=== PATIENT | male | born 1950 | race Caucasian/White ===

== ENCOUNTER → 2016-10-03 | Day surgery (SDC) | payer MEDICARE ==
[~2016-10-03] MED LIST: BELLADONNA ALKALOIDS/OPIUM 60 MG SUPP RECTAL ONE; GENTAMICIN SULFATE 80 MG/2 ML VIAL ONE; LACTATED RINGER'S 1000 ML INJ 1,000 ML ONE; MEPERIDINE HCL 25 MG/ML VIAL ONE; MIDAZOLAM HCL 2 MG/2 ML VIAL ONE; ONDANSETRON HCL 4 MG/2 ML VIAL IV PUSH ONE; PROPOFOL 200 MG/20 ML AMP IV ONE; ceFAZolin INJ 1,000 MG VIAL ONE
--- NOTE | 2016-10-03 10:26 | TN ---
cc: MARTHA BURCH M.D. DATE OF SURGERY 10/03/2016 PREOPERATIVE DIAGNOSIS Benign prostatic hyperplasia with obstruction ICD-10 code N40.1) POSTOPERATIVE DIAGNOSIS Benign prostatic hyperplasia with obstruction ICD-10 code N40.1) PROCEDURE Transurethral resection of the prostate (TURP),(CPT code 70305). INDICATIONS Mr. Romo is a 66-year-old gentleman with lower urinary tract symptoms secondary to BPH and some elevated residual urines who has failed maximum pharmacologic intervention presents now for definitive treatment. FINDINGS Normal urethra. The prostatic urethra shows trilobar hyperplasia with a massive median lobe most of which is projecting intravesically. The bladder neck is markedly elevated and in fact, most of his obstruction is from the median lobe itself. The prostatic prostate is quite vascular as is the bladder itself. The bladder shows ureteral orifice normal size, shape and position effluxing clear urine. The orifices could not be identified until some of the bladder neck was resected. There are multiple diverticula of different sizes within the bladder most small to moderately sized. There is obviously heavy trabeculation of the bladder. No stones, two tumors, abnormal mucosa identified. PROCEDURE The procedure, as well as the risks and benefits were explained to the patient. Informed consent was obtained. The patient was taken to the major operative theater where he was placed in a supine position. The patient was identified, as well as the operative site. A universal time-out was performed in standard fashion. At this time, general anesthetic and prophylactic intravenous antibiotics consisting of gentamicin 80 mg and Ancef 1 gram were administered. After adequate anesthetic, he was placed in a low dorsal lithotomy position with slight Trendelenburg and prepped and draped in the usual sterile fashion. At this time, a 22.5 [place] cystoscope with a 30 degree lens was inserted into the urethra and the bladder with the above findings. At this time, decision was made to perform transurethral resection of the prostate using the gyrus bipolar system and normal saline in a right-angle bladder loop. A 27-Kazakh bethel Smith resectoscope with a right-angle bladder loop was then inserted under direct vision without difficulty and into the bladder. The median lobe, which was essentially composing the vast majority of his obstructive component was resected completely beginning at the 5 and 7 o'clock positions and then moving medially until the entire median lobe was resected and then some of the bladder neck was then resected not quite circumferentially. At this point, there was some apical tissue near the verumontanum. A decision was made not to resect this since there was a wide open channel now without the median lobe. After confirming hemostasis and no incidental damage to the bladder itself or the ureteral orifices or the sphincter, the resectoscope was removed and pressure on the dome of the bladder with a full bladder showed an excellent stream with clear urine. At this time, a 20-Kazakh three-way hematuria catheter was placed without difficulty and the irrigation port was capped and 30 cc of sterile water was insufflated into the balloon. At this time, a belladonna opioid suppository was given and there was clear urine effluxing from the catheter. The patient placed back in the supine position, emerged from anesthetic without difficulty and transferred to the recovery in stable condition to be discharged home when criteria is met. There are no obvious complications. MD ESTELLA House/VIOLETA /10:03 AM /10:13 AM
== END | disposition home or self-care (01) ==
LOC: ESDC 06:01
PROVIDERS: ATTEND Urology
DX: N40.1 Benign prostatic hyperplasia with lower urinary tract symptoms (principal)
CPT/HCPCS: 00914; 52601; 88305; J0690; J1580; J2175; J2250; J2405; J3010; J7120